=== PATIENT | female | born 1950 | race Caucasian/White ===

== ENCOUNTER 2017-12-21 19:36 | Emergency (ER) | payer OTHER ==
[~2017-12-21] VITALS: Ht 154.9 cm; Wt 61.2 kg
[2017-12-21 19:43] VITALS: Ht 154.9 cm; Wt 61.2 kg
[2017-12-21 20:57] VITALS: BP 145/92
== END 2017-12-21 20:58 | disposition home or self-care (01) ==
LOC: EDBD 19:36 → ED 19:36
DX: S82.831A Other fracture of upper and lower end of right fibula, initial encounter for closed fracture (principal); I10 Essential (primary) hypertension; W18.41XA Slipping, tripping and stumbling without falling due to stepping on object, initial encounter; Y93.89 Activity, other specified; Y92.89 Other specified places as the place of occurrence of the external cause; Y99.8 Other external cause status